=== PATIENT | female | born 1980 | race Caucasian/White ===

== ENCOUNTER 2018-05-16 20:45 | Emergency (ER) | payer OTHER ==
--- NOTE | 2018-05-16 20:53 | PDOC ---
Rapid Medical Evaluation Chief Complaint: Cold Symptoms Time Seen by Provider: 05/16/18 20:51 Medical Evaluation: Allergies Allergy/AdvReac Type Severity Reaction Status Date / Time cat pelt standardized Allergy Itching Verified 10/20/14 13:02 allergenic ex [cat pelt standardized extract] peanut Allergy Itching Verified 12/05/14 01:11 soybean Allergy Itching Verified 12/05/14 01:11 wheat Allergy Itching Verified 12/05/14 01:11 No Known Drug Allergies AdvReac Verified 12/05/14 01:11 shrimp Allergy Intermediate Itching Uncoded 10/20/14 12:59 dog Allergy Itching Uncoded 10/20/14 13:02 05/16/18 20:51 I have performed a brief in-person evaluation of this patient. The patient presents with a chief complaint of: Sore throat, fevers, ear pain, dry cough. 26wks Pertinent physical exam findings: OP clear without erythema or exudates. Lungs CTAB. VSS. AF. I have ordered the following: nothing The patient will proceed to the ED for further evaluation. Discharge Disposition - Diagnosis Sore throat - Referrals Referrals: Jatin Stark MD [Primary Care Provider] - - Patient Instructions - Post Discharge Activity
[2018-05-16 20:55] VITALS: BMI 30.9
--- NOTE | 2018-05-16 21:39 | PDOC ---
History of Present Illness - General Chief Complaint: Cold Symptoms Stated Complaint: FEVER (26 WEEKS) Time Seen by Provider: 05/16/18 20:51 - History of Present Illness Initial Comments: 05/16/18 21:37 37-year-old female without comorbidities presents for evaluation of cough and sore throat 3 days.. She states her congestion and cough started about 7 days ago and over the last 3 days she developed a low-grade fever which is subjective and unmeasured Past History - Past Medical History Allergies/Adverse Reactions: Allergies Allergy/AdvReac Type Severity Reaction Status Date / Time cat pelt standardized Allergy Itching Verified 10/20/14 13:02 allergenic ex [cat pelt standardized extract] peanut Allergy Itching Verified 12/05/14 01:11 soybean Allergy Itching Verified 12/05/14 01:11 wheat Allergy Itching Verified 12/05/14 01:11 No Known Drug Allergies AdvReac Verified 12/05/14 01:11 shrimp Allergy Intermediate Itching Uncoded 10/20/14 12:59 dog Allergy Itching Uncoded 10/20/14 13:02 Home Medications: Ambulatory Orders NK [No Known Home Medication] 05/16/18 Anemia: No Asthma: No Cancer: No Cardiac Disorders: No CVA: No COPD: No CHF: No Dementia: No Diabetes: No GI Disorders: No Disorders: No HTN: No Hypercholesterolemia: No Liver Disease: No Seizures: No Thyroid Disease: No Other medical history: thrombophelia - Suicide/Smoking/Psychosocial Hx Smoking Status: No Smoking History: Never smoked Have you smoked in the past 12 months: No Number of Cigarettes Smoked Daily: 0 Information on smoking cessation initiated: No Hx Alcohol Use: No Drug/Substance Use Hx: No Substance Use Type: None Hx Substance Use Treatment: No Review of Systems - Review of Systems Constitutional: Yes: Fever HEENTM: Yes: Throat Pain Respiratory: Yes: Cough *Physical Exam - Vital Signs Last Vital Signs Temp Pulse Resp BP Pulse Ox 98.8 F 69 18 111/71 100 05/16/18 20:51 05/16/18 20:51 05/16/18 20:51 05/16/18 20:51 05/16/18 20:51 - Physical Exam Comments: 05/16/18 21:37 HEAD: NC/AT EYES: Conjuntiva clear Ears: Canals and TM's normal NOSE: No d/c THROAT: Moist mucous membrances, oral pharanx clear, uvula midline NECK: Supple without adenopathy CARDIAC: S1 S2 LUNGS: CTA Full and Equal breath sounds ABDOMEN: Soft NT ND MS: Full ROM in all joints without edema NEUROLOGIC: No gross sensory or motor deficits, NVID SKIN: Normal color and temperature no lesions or rashes Medical Decision Making - Medical Decision Making Patient insisted on the throat culture. She states she had strep throat in the past and these were similar symptoms her throat exam is benign rapid strep was sent 05/16/18 21:38 *DC/Admit/Observation/Transfer Diagnosis at time of Disposition: Sore throat, URI (upper respiratory infection) - Discharge Dispostion Disposition: HOME Condition at time of disposition: Stable Decision to Admit order: No - Referrals Referrals: Jatin Stark MD [Primary Care Provider] - - Patient Instructions Printed Discharge Instructions: DI for Viral Upper Respiratory Infection -- Adult Additional Instructions: Continue with Tylenol and Motrin for fever as directed return to the emergency room should symptoms worsen or go unresolved and follow-up with your primary care doctor in one to 2 days for further evaluation and treatment options. - Post Discharge Activity
[2018-05-16 23:44] VITALS: BP 105/75; PULSE 83; TEMP 97.8
== END 2018-05-16 23:50 | disposition home or self-care (01) ==
LOC: JER 20:45 → JERFT 20:45 → JER 23:50
DX: O26.892 Other specified pregnancy related conditions, second trimester (principal); O99.512 Diseases of the respiratory system complicating pregnancy, second trimester; J06.9 Acute upper respiratory infection, unspecified; J02.9 Acute pharyngitis, unspecified; Z3A.25 25 weeks gestation of pregnancy
CPT/HCPCS: 87070; 87880; 99281-25

== ENCOUNTER 2018-05-20 08:14 | Emergency (ER) | payer OTHER ==
[2018-05-20 08:22] VITALS: BP 104/64; PULSE 85; TEMP 98.2; BMI 30.9
--- NOTE | 2018-05-20 08:53 | PDOC ---
History of Present Illness - General Chief Complaint: Pain, Acute Stated Complaint: PAIN Time Seen by Provider: 05/20/18 08:45 History Source: Patient Exam Limitations: No Limitations - History of Present Illness Initial Comments: 05/20/18 08:56 Patient came for evaluation of persistent runny nose, sore throat pain with postnasal drainage, and laryngitis. States his been using [id number] Tylenol and home remedies with minimal resolved. States had fever last night but none today. 26 weeks ncomplicated 05/20/18 09:09 Timing/Duration: reports: intermittent Severity: reports: mild, moderate Associated Symptoms: reports: cough, earache, fever/chills, nasal congestion, nasal drainage, sore throat Past History - Travel Traveled outside of the country in the last 30 days: No Close contact w/someone who was outside of country & ill: No - Past Medical History Allergies/Adverse Reactions: Allergies Allergy/AdvReac Type Severity Reaction Status Date / Time cat pelt standardized Allergy Itching Verified 05/20/18 08:18 allergenic ex [cat pelt standardized extract] peanut Allergy Itching Verified 05/20/18 08:18 soybean Allergy Itching Verified 05/20/18 08:18 wheat Allergy Itching Verified 05/20/18 08:18 No Known Drug Allergies AdvReac Verified 05/20/18 08:18 shrimp Allergy Intermediate Itching Uncoded 05/20/18 08:18 dog Allergy Itching Uncoded 05/20/18 08:18 Home Medications: Ambulatory Orders Acetaminophen [Tylenol] 325 mg PO QID PRN 05/20/18 Anemia: No Asthma: No Cancer: No Cardiac Disorders: No CVA: No COPD: No CHF: No Dementia: No Diabetes: No GI Disorders: No Disorders: No HTN: No Hypercholesterolemia: No Liver Disease: No Seizures: No Thyroid Disease: No - Suicide/Smoking/Psychosocial Hx Smoking Status: No Smoking History: Never smoked Have you smoked in the past 12 months: No Number of Cigarettes Smoked Daily: 0 Hx Alcohol Use: No Drug/Substance Use Hx: No Substance Use Type: None Hx Substance Use Treatment: No Review of Systems - Review of Systems Able to Perform ROS?: Yes Is the patient limited [place] Citizen proficient: Yes Constitutional: Yes: Symptoms Reported, See HPI, Malaise HEENTM: Yes: See HPI, Nose Congestion, Throat Pain. No: Difficulty Swallowing Respiratory: Yes: Symptoms reported, See HPI, Cough (moist non-productive) Integumentary: No: Symptoms Reported Neurological: Yes: See HPI, Headache (frontal) All Other Systems: Reviewed and Negative *Physical Exam - Vital Signs Last Vital Signs Temp Pulse Resp BP Pulse Ox 98.2 F 85 18 104/64 98 05/20/18 08:20 05/20/18 08:20 05/20/18 08:20 05/20/18 08:20 05/20/18 08:20 - Physical Exam General Appearance: Yes: Nourished, Appropriately Dressed, Apparent Distress, Mild Distress HEENT: positive: ANAY, TMs Normal (congested but landmarks e), Pharynx Normal ( no redness / swelling/ exudate), Nasal Congestion, Rhinorrhea (clear). negative : Pharyngeal Erythema, Tonsillar Exudate Neck: positive: Supple. negative: Tender, Lymphadenopathy (R), Lymphadenopathy (L) Respiratory/Chest: positive: Lungs Clear, Normal Breath Sounds. negative: Rhonchi, Wheezing Extremity: positive: Normal Capillary Refill, Normal Inspection. negative: Tender Integumentary: positive: Normal Color, Dry, Warm, Pale Neurologic: positive: gas fitter II-XII NML intact, Fully Oriented, Alert, Normal Mood/ Affect, Normal Response, Motor Strength 5/5 Progress Note - Progress Note Progress Note: No evidence of bacterial infection or streptococcal infection. Reviewed lack of need for any throat swelling and reviewed signs and symptoms of strep throat. Patient agrees to continue homeopathic remedies and follow up with her OB doctor tomorrow or the following day. Given a work note until Monday. *DC/Admit/Observation/Transfer Diagnosis at time of Disposition: URI (upper respiratory infection) Qualifiers: URI type: unspecified URI Qualified Code(s): J06.9 - Acute upper respiratory infection, unspecified - Discharge Dispostion Disposition: HOME Condition at time of disposition: Stable Decision to Admit order: No - Referrals Referrals: Jatin Stark MD [Primary Care Provider] - - Patient Instructions Printed Discharge Instructions: DI for Common Cold Additional Instructions: Rest, drink lots of fluids: Teas, water, soups, Pedialyte Saltwater gargles Steamy showers/seem to face break up mucus Avoid contact with others until fevers and cough resolved Lots of handwashing and good hygiene Continue [id number] medications for symptomatic relief Tylenol for fever and pain Followup with private physician in one to 2 days as needed Return to emergency department for worsened symptoms, fevers, dehydration - Post Discharge Activity Forms/Work/School Notes: Back to Work
== END 2018-05-20 09:25 | disposition home or self-care (01) ==
LOC: JERFT 08:14
DX: O26.892 Other specified pregnancy related conditions, second trimester (principal); O99.512 Diseases of the respiratory system complicating pregnancy, second trimester; J06.9 Acute upper respiratory infection, unspecified; Z3A.26 26 weeks gestation of pregnancy
CPT/HCPCS: 99281-25

== ENCOUNTER 2018-08-20 22:15 | Inpatient (IN) | payer OTHER ==
[2018-08-20] MEDS ORDERED: BUTORPHANOL TARTRATE 1 MG/ML VIAL IVPB ONE (22:43)
[2018-08-20] MEDS ORDERED: DEXTROSE 5%-LACTATED RINGERS 1,000 ML IV SCH (22:45)
--- NOTE | 2018-08-20 22:50 | HP ---
Past Medical History - Admission Chief Complaint: Uterine contractions History of Present Illness: 38yo @ 39.4wks by tatyana, PATRICIA 08/23/2018 here with uterine contractions. No VB/LOF. 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: Alzheimer's, CVA, Dementia, Migraine, Multiple Sclerosis, Peripheral Neuropathy, Parkinson's, Seizure, Syncope, TIA, Vertigo, Other Cardiovascular: No: AFIB, Aneurysm, Aortic Insufficiency, Aortic Stenosis, CAD, CHF, Deep Vein Thrombosis, HTN, Hyperlipdemia, [place], Mitral Insufficiency, Mitral Stenosis, Murmur, Pulmonary Hypertension, Other Pulmonary: No: Asthma, Bronchitis, Cancer, COPD, O2 Dependent, Pneumonia, Previously Intubated, Pulmonary Embolus, Pulmonary Fibrosis, Sleep Apnea, Other Gastrointestinal: No: Ascites, Cancer, Constipation, Crohn's Disease, Diverticulitis, Diverticulosis, Esophageal Varices, Gastritis, GERD, GI Bleed, Hemorrhoids, Hiatal Hernia, Inflamatory Bowel Disease, Irritable Bowel Disease, Pancreatitis, Peptic Ulcer Disease, Ulcerative Colitis, Other Hepatobiliary: No: Cirrhosis, Cholelithiasis, Cholecystitis, Choledocholithiasis , Hepatitis A, Hepatitis B, Hepatitis C, Other Renal/: No: Renal Failure, Renal Inusuff, BPH, Cancer, Hematuria, Hemodialysis , Neurogenic Bladder, Renal Calculi, UTI, Other Reproductive: No: Ectopic , Endometriosis, Fibroids, PID, Polycystic Ovary Syndrome, Postmenopausal, Other ...: 2 ...Para: 4 ...Term: 2 ...: 2 ... Weeks Gestation by Dates: 39.4 ...EDC by Dates: 07/07/18 ...EDC by Sono: 08/23/18 Heme/Onc: Yes: Anemia Infectious Disease: No: AIDS, C-Diff, Herpes Zoster, HIV, MRSA, STD's, Tuberculosis, VREF, Other Psych: No: Addictions, Anxiety, Bipolar, Depression, Panic, Psychosis, Schizophrenia, Other Musculoskeletal: No: Bursitis, Chronic low back pain, Hemiparesis, Hemiplegia, Osteoarthritis, Paraplegia, Other Rheumatology: No: Fibromyalgia, Gout, Lupus, Rheumatoid Arthritis, Sarcoidosis, Vasculitis, Other ENT: No: Allergic Rhinitis, Sinusitis, Other Endocrine: No: Burna's Disease, [place]'s Disease, Diabetes Insipidus, Diabetes Mellitus, Hyperparathyroidism, Hyperthyroidism, Hypothyroidism, Osteopenia, SIADH, Other Dermatology: No: Basal Cell, Cellulitis, Eczema, Melanoma, Psoriasis, Squamous Cell, Other - Past Surgical History Hx Myomectomy: No Hx Transabdominal Cerclage: No - Smoking History Smoking history: Never smoked Have you smoked in the past 12 months: No Aproximately how many cigarettes per day: 0 - Alcohol/Substance Use Hx Alcohol Use: No History of Substance Use: reports: None - Social History Usual Living Arrangement: Yes: With Spouse ADL: Independent History of Recent Travel: No Home Medications - Allergies Allergies/Adverse Reactions: Allergies Allergy/AdvReac Type Severity Reaction Status Date / Time cat pelt standardized Allergy Itching Verified 05/20/18 08:18 allergenic ex [cat pelt standardized extract] peanut Allergy Itching Verified 05/20/18 08:18 soybean Allergy Itching Verified 05/20/18 08:18 wheat Allergy Itching Verified 05/20/18 08:18 No Known Drug Allergies AdvReac Verified 05/20/18 08:18 shrimp Allergy Intermediate Itching Uncoded 05/20/18 08:18 dog Allergy Itching Uncoded 05/20/18 08:18 - Home Medications Home Medications: Ambulatory Orders Acetaminophen [Tylenol] 325 mg PO QID PRN 05/20/18 Review of Systems - Review of Systems Constitutional: denies: No Symptoms, Chills, Diaphoresis, Fever, Lethargy, Loss of Appetite, Malaise, Night Sweats, Unintentional Wgt. Loss, Weakness, Other Eyes: denies: No Symptoms, Blind Spots, Blurred Vision, Double Vision, Eye Pain , Floaters, Photophobia, Recent Change in Vision, Other HENT: denies: No Symptoms, Difficult Swallowing, Ear Discharge, Ear Pain, Epistaxis, Gingival Bleeding, Hearing Loss, Mouth Swelling, Nasal Congestion, Ocular Prosthesis, Throat Pain, Toothache, Ringing in Ears, Other Neck: denies: No Symptoms, Decreased ROM, Lumps, Pain on Movement, Stiffness, Swollen Glands, Tenderness, Other Cardiovascular: denies: No Symptoms, Chest Pain, Edema, Palpitations, Shortness of Breath, Other Respiratory: denies: No Symptoms, Cough, Exercise Intolerance, Hemoptysis, Orthopnea, PND, Snoring, SOB, SOB on Exertion, Wheezing, Other Genitourinary: denies: No Symptoms, Burning, Discharge, Dysuria, Flank Pain, Frequency, Hematuria, Incontinence, Lesions, Menses, Pain, Testicular Mass, Testicular Pain, Testicular Swelling, Urgency, Vaginal Bleeding, Other Physical Exam - Maternity Constitutional: Yes: Well Nourished Eyes: Yes: WNL HENT: Yes: WNL - Abdominal Exam/OB Number of Fetuses: Single Presentation: Vertex Contractions: Yes Regularity: Regular Intensity: Mild/Mod Monitor Mode: External Accelerations: Non-Uniform Decelerations: None - Vaginal Exam/OB Vaginal Bleediing: No Speculum Exam: No Dilatation (cm): 6 Effacement (%): 50 Amniotic Membrane Status: Intact Presentation: Vertex/Position Station: -3 Problem List - Problems (1) Uterine contractions Code(s): [id number] - Assessment/Plan 38yo @ 39.4wks here in labor Admit to L&D NPO, IVFs GBS neg Cat I tracing; CEFM/Nadine Stadol x 1 Anticipate Peri Gary MD
--- NOTE | 2018-08-20 23:01 | PN ---
Progress Note, Labor Vaginal Exam #1 Labor Exam Date: 08/20/18 Labor Exam Time: 23:01 Heart Rate (range): Cat I Dilatation: 8 Effacement (%): 100 Amniotic Membrane Status: Intact Presentation: Vertex/Position Station: -1 Remarks: Getting more uncomfortable Discussed too far for stadol, rapid progression Anticipate EASTON Gary MD
[2018-08-20 23:11] LABS: BASO % 0.7 % (0-2.0); EOS % 2.4 % (0-4.5); HEMATOCRIT 35.6 % (32.4-45.2); HEMOGLOBIN 12.3 GM/dL (10.7-15.3); LYMPH % 22.6 % (8-40); MCHC 34.6 g/dl (32.0-36.0); MEAN CELL VOLUME 92.5 fl (80-96); MEAN PLT VOLUME 9.4 fl (7.5-11.1); MONO % 7.4 % (3.8-10.2); NEUT % 66.9 % (42.8-82.8); PLATELET COUNT 268 K/MM3 (134-434); RBC 3.85 M/mm3 (3.60-5.2); RDW 15.1 % (11.6-15.6); WHITE BLOOD COUNT 7.8 K/mm3 (4.0-10.0)
[2018-08-20 23:13] LABS: INR 0.91 (0.83-1.09); PROTHROMBIN TIME (PATIENT) 10.7 SEC (9.7-13.0)
[2018-08-20 23:20] VITALS: BMI 34.4
[2018-08-20] MEDS ORDERED: OXYTOCIN 20 UNITS in 0.9% NS 20 UNIT/1,000 ML INFUS.BAG IV ONE (23:21)
[2018-08-20 23:27] LABS: ANION GAP 6 MMOL/L (8-16); BLOOD UREA NITROGEN 13 mg/dL (7-18); CALCIUM 8.7 mg/dL (8.5-10.1); CHLORIDE 105 mmol/L (98-107); CO2 26 mmol/L (21-32); CREATININE 0.5 mg/dL (0.55-1.3); GLUCOSE,RANDOM 80 mg/dL (74-106); POTASSIUM 5.6 mmol/L (3.5-5.1); SODIUM 137 mmol/L (136-145)
--- NOTE | 2018-08-20 23:31 | PN ---
Progress Note, Labor Vaginal Exam #3 Labor Exam Date: 08/20/18 Labor Exam Time: 23:30 Heart Rate (range): Cat I Dilatation: 8 Effacement (%): 100 Amniotic Membrane Status: Ruptured Presentation: Vertex/Position Station: 0 Remarks: Cat I tracing AROM, light meconium Anticipate Peri Gary MD
[2018-08-20] MEDS ORDERED: TUBERCULIN PPD 5 TU/0.1ML SYRINGE (IN PATIENT USE ONLY) ID ONE (23:45)
--- NOTE | 2018-08-20 23:50 | PN ---
Progress Note, Labor Vaginal Exam #3 Labor Exam Date: 08/20/18 Labor Exam Time: 23:49 Heart Rate (range): Cat I Dilatation: AL Effacement (%): 100 Amniotic Membrane Status: Intact Presentation: Vertex/Position Station: 0 Remarks: Feeling rectal pressure Anterior lip Anticipate Peri Gary MD
[2018-08-21] MEDS ORDERED: oxyCODONE HCL 5 MG TABLET ONE (00:45)
[2018-08-21] MEDS ORDERED: BISACODYL 10 MG SUPP.RECT RC PRN (00:46)
[2018-08-21] MEDS ORDERED: BENZOCAINE 28 GM HEMORRHOIDAL OINTMENT TP PRN (00:46)
[2018-08-21] MEDS ORDERED: WITCH HAZEL 50% (TUCKS) 40 PAD/JAR PAD TP PRN (00:46)
[2018-08-21] MEDS ORDERED: METHYLERGONOVINE MALEATE 0.2 MG/1 ML AMP IM PRN (00:46)
[2018-08-21] MEDS ORDERED: BENZOCAINE 20% 57 GM BOTTLE TP PRN (00:46)
--- NOTE | 2018-08-21 00:46 | PN ---
Delivery - Delivery Vaginal Delivery: Shoulder/Difficult Section: Primary Type of Anesthesia: None Episiotomy/Laceration: None Delivery, Single - Stages of Labor Placenta: Yes: Spontaneous - Condition of Hypnotherapist/Foot Roentgenologist Present: No Gender: Female Position: Left, OA - Feeding Plan Initial Plan: Elected not to breastfeed exclusively throughout hospitalization Remarks - Remarks Remarks: of VMI over intact perineum. No anesthesia. 39 weeks. Spontaneous delivery of anterior shoulder. Infant placed on maternal abdomen. Cord clamped and cut. Apgars 9/9. Weight pending. Spontaneous delivery of intact placenta with 3VC. Perineum inspected, superficial midline abrasion- not bleeding or repaired. Fundus firm. EBL 350ml. Mother and baby doing well. Augusta Gary MD
[2018-08-21] MEDS ORDERED: OXYTOCIN 20 UNITS in 0.9% NS 20 UNIT/1,000 ML INFUS.BAG IV SCH (01:00)
[2018-08-21] MEDS ORDERED: ACETAMINOPHEN 325 MG TABLET (FP) PO ONE (01:00)
[2018-08-21] MEDS ORDERED: oxyCODONE HCL 5 MG TABLET PO ONE ×2 (01:00→01:45)
[2018-08-21] MEDS: PRENATAL VITAMINS W/ FOLIC ACID TABLET (FP) PO SCH (10:00)
[2018-08-21] MEDS: ACETAMINOPHEN 325 MG TABLET (FP) PO PRN ×2 (14:36→23:41)
[2018-08-21] MEDS: IBUPROFEN 600 MG TABLET (FP) PO PRN ×2 (14:36→23:42)
[2018-08-22] MEDS: IBUPROFEN 600 MG TABLET (FP) PO PRN ×3 (05:23→20:32)
[2018-08-22] MEDS: ACETAMINOPHEN 325 MG TABLET (FP) PO PRN ×3 (05:23→20:33)
--- NOTE | 2018-08-22 06:39 | PN ---
Post Progress Note - Subjective Subjective: no complains Post Day: 1 Type of Delivery: Vital Signs: Vital Signs Temperature 97.7 F 08/21/18 21:23 Pulse Rate 64 08/21/18 21:23 Respiratory Rate 20 08/21/18 21:23 Blood Pressure 102/61 08/21/18 21:23 O2 Sat by Pulse Oximetry (%) 100 08/21/18 01:45 Breast Exam: Yes: Soft, Other (BF). No: Engorged Uterus: Yes: Fundus Firm, Fundus below umbilicus, Non-tender Lochia: Yes: Rubra Lochia, amount: Moderate Extremities: Yes: Calves non-tender Perineum: Yes: Intact Activity: Ambulating - Labs Labs: CBC WBC 7.8 K/mm3 (4.0-10.0) 08/20/18 22:40 RBC 3.85 M/mm3 (3.60-5.2) 08/20/18 22:40 Hgb 12.3 GM/dL (10.7-15.3) 08/20/18 22:40 Hct 35.6 % (32.4-45.2) 08/20/18 22:40 MCV 92.5 fl (80-96) 08/20/18 22:40 MCH 32.0 pg (25.7-33.7) D 08/20/18 22:40 MCHC 34.6 g/dl (32.0-36.0) 08/20/18 22:40 RDW 15.1 % (11.6-15.6) D 08/20/18 22:40 Plt Count 268 K/MM3 (134-434) D 08/20/18 22:40 MPV 9.4 fl (7.5-11.1) D 08/20/18 22:40 Absolute Neuts (auto) 5.2 K/mm3 (1.5-8.0) 08/20/18 22:40 Neutrophils % 66.9 % (42.8-82.8) D 08/20/18 22:40 Lymphocytes % 22.6 % (8-40) D 08/20/18 22:40 Monocytes % 7.4 % (3.8-10.2) 08/20/18 22:40 Eosinophils % 2.4 % (0-4.5) 08/20/18 22:40 Basophils % 0.7 % (0-2.0) 08/20/18 22:40 Nucleated RBC % 0 % (0-0) 08/20/18 22:40 Problem List - Problems (1) Normal vaginal delivery Code(s): O80 - ENCOUNTER FOR FULL-TERM UNCOMPLICATED DELIVERY (2) Encounter for care after hospital delivery Code(s): Z39.2 - ENCOUNTER FOR ROUTINE FOLLOW-UP Assessment/Plan stable . pp cbc today discharge tomorrow.
[2018-08-22 07:35] LABS: BASO % 0.5 % (0-2.0); EOS % 5.6 % (0-4.5); HEMATOCRIT 30.1 % (32.4-45.2); HEMOGLOBIN 10.3 GM/dL (10.7-15.3); LYMPH % 29.8 % (8-40); MCH 31.7 pg (25.7-33.7); MCHC 34.1 g/dl (32.0-36.0); MEAN PLT VOLUME 8.7 fl (7.5-11.1); MONO % 5.3 % (3.8-10.2); NEUT % 58.8 % (42.8-82.8); PLATELET COUNT 225 K/MM3 (134-434); RBC 3.24 M/mm3 (3.60-5.2); RDW 15.6 % (11.6-15.6); WHITE BLOOD COUNT 6.3 K/mm3 (4.0-10.0)
[2018-08-22] MEDS: PRENATAL VITAMINS W/ FOLIC ACID TABLET (FP) PO SCH (09:43)
[2018-08-22 20:43] VITALS: TEMP 97.7
[2018-08-22] MEDS ORDERED: SENNOSIDES/DOCUSATE COMBO (SENNA PLUS) TABLET (UD) PO PRN (22:00)
[2018-08-23] MEDS: PRENATAL VITAMINS W/ FOLIC ACID TABLET (FP) PO SCH (10:00)
--- NOTE | 2018-08-23 10:12 | DS ---
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 No: Calf Tenderness Edema: Yes Edema: LLE: Trace, RLE: Trace Integumentary: Yes: WNL Neurological: Yes: WNL ...Motor Strength: WNL Psychiatric: Yes: WNL Labs: CBC, BMP 08/22/18 07:00 08/20/18 22:40 Delivery - Delivery Vaginal Delivery: Shoulder/Difficult Section: Primary Type of Anesthesia: None Episiotomy/Laceration: None EBL (cc): 350 Delivery, Single - Stages of Labor Date 1st Stage Initiatied: 08/20/18 Time 1st Stage Initiated: 23:27 Date 2nd Stage Initiated: 08/21/18 Time 2nd Stage Initiated: 00:15 Date of Delivery: 08/21/18 Time of Delivery: 00:29 Time Placenta Delivered: 00:33 Placenta: Yes: Spontaneous - 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 Gender: Female Weight: 8 lb 1 oz Position: Left, OA Total Hours ROM (Hrs/Mins): 1HOUR/6 MINUTES - 1 Minute Total Score: 9 5 Minutes Total Score: 9 - [place] Feeding Plan Initial Plan: Elected not to breastfeed exclusively throughout hospitalization Remarks - Remarks Remarks: pp course uneventful anemia counselled discharge today Discharge Summary Reason For Visit: LABOR Current Active Problems Encounter for care after hospital delivery (Acute) Normal vaginal delivery (Acute) Uterine contractions (Acute) Condition: Stable - Instructions Diet, Activity, Other Instructions: Regular Diet Referrals: Augusta Gary MD [Staff Physician] - Disposition: HOME - Home Medications Comprehensive Discharge Medication List: Ambulatory Orders Aspirin [ASA -] 1 tab PO DAILY 08/21/18 Pnv 29-1 Tablet 1 tab PO DAILY 08/21/18 Ibuprofen 600 mg PO Q6H PRN #30 tablet 08/22/18
[2018-08-23 10:43] VITALS: BP 109/75; PULSE 74
== END 2018-08-23 14:20 | disposition home or self-care (01) | DRG 560 ==
LOC: JLDR 22:15 → J3W 08-21 02:30
PROVIDERS: ADMIT Obstetrics & Gynecology; ATTEND Obstetrics & Gynecology
PROC: 10E0XZZ Delivery of Products of Conception, External Approach (ICD-10-PCS; principal; 2018-08-21)
DX: O80 Encounter for full-term uncomplicated delivery (principal); Z3A.39 39 weeks gestation of pregnancy; Z37.0 Single live birth
CPT/HCPCS: 36415; 59409; 80048; 85025; 85610; 86593; 86850; 86900; 86901